=== PATIENT | female | born 2000 | race African-American/Black ===

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

== ENCOUNTER 2020-04-23 09:10 | Outpatient (CLI) | payer OTHER | END 2020-04-23 09:11 | disposition home or self-care (01) | LOC: MADLAB 09:10 | PROVIDERS: ATTEND Family Medicine | DX: Z34.83 Encounter for supervision of other normal pregnancy, third trimester (principal) | CPT/HCPCS: 36415; 82951; 82952 ==

== ENCOUNTER 2020-06-11 12:21 | Outpatient (CLI) | payer OTHER, MEDICAID | END 2020-06-11 12:22 | disposition home or self-care (01) | LOC: MADLAB 12:21 | PROVIDERS: ATTEND Family Medicine | DX: Z34.83 Encounter for supervision of other normal pregnancy, third trimester (principal) | CPT/HCPCS: 87077; 87081 ==

== ENCOUNTER 2020-06-19 11:05 | Emergency (ER) | payer OTHER, MEDICAID ==
[2020-06-19 11:52] LABS: Bilirubin Negative (Negative); Blood, Urine Moderate (Negative); Glucose, Urine (Dipstick) Negative (Negative); Ketone, Urine Negative (Negative); Leukocyte Large (Negative); Nitrite Negative (Negative); Protein, Urine (Dipstick) Negative (Neg-Trace); Specific Gravity, Urine 1.025 (1.005-1.030); Urobilinogen 0.2 mg/dL (Less than 2)
[2020-06-19 11:53] LABS: Clarity Cloudy (Clear)
[2020-06-19 11:54] LABS: Bacteria/HPF 2+ HPF (None Seen)
== END 2020-06-19 12:15 | disposition short-term general hospital (02) ==
LOC: MADERS 11:05
DX: O99.891 Other specified diseases and conditions complicating pregnancy (principal); Z3A.37 37 weeks gestation of pregnancy
CPT/HCPCS: 81003; 81015; 99284

== ENCOUNTER 2021-01-20 11:31 | Emergency (ER) | payer OTHER ==
[2021-01-20] MEDS ORDERED: Ondansetron ODT 4 MG TAB ONE (12:10)
== END 2021-01-20 12:10 | disposition home or self-care (01) ==
LOC: EEVIPCON 11:31 → MADERS 11:31
DX: A09 Infectious gastroenteritis and colitis, unspecified (principal)
CPT/HCPCS: 99283; Q0162

== ENCOUNTER 2021-06-06 19:05 | Emergency (ER) | payer OTHER, MEDICAID ==
[2021-06-06] MEDS ORDERED: Ibuprofen 600 MG TAB ONE (20:13)
== END 2021-06-06 20:20 | disposition home or self-care (01) ==
LOC: MADERS 19:05
DX: R51.9 Headache, unspecified (principal); K59.00 Constipation, unspecified
CPT/HCPCS: 99283

== ENCOUNTER 2021-10-27 13:35 | Emergency (ER) | payer OTHER, MEDICAID ==
[2021-10-27 14:57] LABS: Pregnancy Test - Urine (BHCG) Negative (Negative); Pregu Control Background? CLEAR/WHITE (CLR/WHITE); Pregu Control Bar Appear? YES (CONTROL BAR); Specific Gravity 1.015 (1.002-1.036)
== END 2021-10-27 15:08 | disposition home or self-care (01) ==
LOC: MADERS 13:35
DX: R11.2 Nausea with vomiting, unspecified (principal)
CPT/HCPCS: 81025; 99284

== ENCOUNTER 2022-02-21 11:49 | Emergency (ER) | payer MEDICAID, OTHER | END 2022-02-21 12:50 | disposition home or self-care (01) | LOC: MADERS 11:49 | DX: G56.02 Carpal tunnel syndrome, left upper limb (principal) | CPT/HCPCS: 99283 ==

== ENCOUNTER 2022-05-02 19:06 | Emergency (ER) | payer MEDICAID | END 2022-05-02 20:15 | disposition home or self-care (01) | LOC: MADERS 19:06 | DX: J06.9 Acute upper respiratory infection, unspecified (principal); J02.9 Acute pharyngitis, unspecified | CPT/HCPCS: 99283 ==

== ENCOUNTER 2023-07-26 14:52 | Emergency (ER) | payer BC ==
[2023-07-26] MEDS ORDERED: Dicyclomine 10 MG CAP ONE (15:25)
[2023-07-26] MEDS ORDERED: Ondansetron PF 4 MG/2 ML Vial ONE (15:25)
[2023-07-26] MEDS ORDERED: Sodium Chloride 0.9% 1,000 ML ONE (15:25)
[2023-07-26 15:57] LABS: Band 3 % (5-11); Eosinophils 4 % (0-10); Hematocrit 43.9 % (36.0-47.0); Hemoglobin 13.2 g/dL (12.0-16.0); Lymphocytes 12 % (21-51); MDiff Complete? YES; Manual Diff?? YES; Mean Corpuscular Hemoglobin 25.2 pg (27.0-31.0); Mean Corpuscular Volume 84.1 fl (78.0-98.0); Mean Platelet Volume 8.2 fL (7.4-10.4); Monocytes 6 % (0-10); Neutrophil 64 % (42-75); Platelet Count 225 10x3/uL (130-400); RBC Distribution Width 12.6 % (11.5-14.5); Reactive Lymphocytes 11 % (0-10); Red Blood Cell (RBC) Count 5.22 mill/uL (4.20-5.40); White Blood Cell (WBC) Count 4.5 10x3/uL (4.8-10.8)
[2023-07-26 15:58] LABS: Platelet Adequacy Comment Appears Adequate; RBC Morph Comment Within Normal Limits
[2023-07-26 16:02] LABS: ALT (SGPT) 16 U/L (8-55); AST (SGOT) 21 U/L (5-34); Albumin 4.2 g/dL (3.5-5.0); Alkaline Phosphatase 67 U/L (40-110); Anion Gap 19 mmol/L (10-20); BUN (Urea Nitrogen) 8 mg/dL (7.0-18.7); Bilirubin, Total 0.8 mg/dL (0.2-1.2); Calc. Creatinine Clearance 0 mL/min (70-130); Carbon Dioxide 19 mmol/L (22-29); Chloride 109 mmol/L (98-107); Estimated GFR 103; Globulin 2.6 g/dL (2.4-3.5); Glucose 98 mg/dL (70-105); Potassium 3.3 mmol/L (3.5-5.1); Protein, Total 6.8 g/dL (6.0-8.3); Sodium 144 mmol/L (136-145)
[2023-07-26 16:07] LABS: Pregnancy Test - Urine (BHCG) Negative (Negative); Pregu Control Background? CLEAR/WHITE (CLR/WHITE); Pregu Control Bar Appear? YES (CONTROL BAR); Specific Gravity 1.025 (1.002-1.036)
[2023-07-26 16:08] LABS: Bilirubin Negative (Negative); Blood, Urine Trace (Negative); Clarity Clear (Clear); Glucose, Urine (Dipstick) Negative (Negative); Ketone, Urine Negative (Negative); Leukocyte Small (Negative); Nitrite Negative (Negative); Protein, Urine (Dipstick) Negative (Neg-Trace); Specific Gravity, Urine 1.025 (1.005-1.030); Urobilinogen 0.2 mg/dL (Less than 2); pH, Urine 5.5 (5.0-9.0)
[2023-07-26 16:13] LABS: Bacteria/HPF 1+ HPF (None Seen); CAUTI Indications for Culture Pelvic or flank pain; RBC/HPF 0-3 HPF (0-3)
[2023-07-26 16:14] LABS: Urine Culture Reflex No No
== END 2023-07-26 16:56 | disposition home or self-care (01) ==
LOC: MADERS 14:52
DX: N39.0 Urinary tract infection, site not specified (principal); R19.7 Diarrhea, unspecified
CPT/HCPCS: 80053; 81001; 81025; 85025; 96361; 96374; J2405; J7050

== ENCOUNTER 2023-12-04 08:22 | Emergency (ER) | payer BC ==
[2023-12-04] MEDS ORDERED: Ibuprofen 200 MG TAB ONE (08:49)
[2023-12-04] MEDS ORDERED: HYDROcodone/Acetaminophen 5/325 mg Tablet ONE (08:49)
== END 2023-12-04 09:55 | disposition home or self-care (01) ==
LOC: MADERS 08:22
DX: S13.4XXA Sprain of ligaments of cervical spine, initial encounter (principal); S80.11XA Contusion of right lower leg, initial encounter; V89.0XXA Person injured in unspecified motor-vehicle accident, nontraffic, initial encounter
CPT/HCPCS: 71045; 72125